=== PATIENT | male | born 1945 | race Caucasian/White ===

== ENCOUNTER → 2016-07-07 | Outpatient (CLI) | payer OTHER | END | disposition home or self-care (01) | LOC: PCVCIMAG 09:05 | PROVIDERS: ATTEND Internal Medicine Cardiovascular Disease | DX: I71.4 Abdominal aortic aneurysm, without rupture (principal); E78.00 Pure hypercholesterolemia, unspecified; I10 Essential (primary) hypertension; J44.9 Chronic obstructive pulmonary disease, unspecified; I25.10 Atherosclerotic heart disease of native coronary artery without angina pectoris; R53.83 Other fatigue; R68.89 Other general symptoms and signs | CPT/HCPCS: 80061; 93005; 93978; G0463 ==

== ENCOUNTER → 2016-08-15 | Outpatient (CLI) | payer OTHER | END | disposition home or self-care (01) | LOC: PCVCIMAG 10:46 | PROVIDERS: ATTEND Internal Medicine Cardiovascular Disease | DX: I71.4 Abdominal aortic aneurysm, without rupture (principal); I10 Essential (primary) hypertension; J44.9 Chronic obstructive pulmonary disease, unspecified | CPT/HCPCS: 93325; 93351 ==

== ENCOUNTER → 2016-08-24 | Outpatient (CLI) | payer OTHER ==
[~2016-08-24] MED LIST: DIAZEPAM 10 MG TABLET ONE; FENTANYL PF 100 MCG/2 ML VIAL. ONE; IOHEXOL 300 MG/ML 100ML VIAL. ONE; IOHEXOL 350 MG/ML 100ML VIAL. ONE; IOHEXOL 350 MG/ML 50 ML VIAL. ONE; IV NORMAL SALINE 1000ML BAG 1,000 ML ONE; LIDOCAINE 1% Multi-Dose 20 ML VIAL. ONE; MIDAZOLAM HCL 2 MG/2 ML VIAL. ONE
== END | disposition home or self-care (01) ==
LOC: PCVCINTER 09:08
PROVIDERS: ATTEND Internal Medicine Cardiovascular Disease
DX: I71.4 Abdominal aortic aneurysm, without rupture (principal); I70.1 Atherosclerosis of renal artery; I15.0 Renovascular hypertension; I70.0 Atherosclerosis of aorta; I10 Essential (primary) hypertension; J44.9 Chronic obstructive pulmonary disease, unspecified; I25.10 Atherosclerotic heart disease of native coronary artery without angina pectoris; I73.89 Other specified peripheral vascular diseases; I77.9 Disorder of arteries and arterioles, unspecified; E78.00 Pure hypercholesterolemia, unspecified; R53.83 Other fatigue; R68.89 Other general symptoms and signs
CPT/HCPCS: 36245; 36252; 75630; 75726; 76937; 93458; C1751; C1760; C1769; C1894; J2250; J3010; J7030; Q9967

== ENCOUNTER → 2016-11-02 | Outpatient (CLI) | payer OTHER | END | disposition home or self-care (01) | LOC: PCVCCLINIC 16:11 | PROVIDERS: ATTEND Internal Medicine Cardiovascular Disease | DX: I10 Essential (primary) hypertension (principal); I77.9 Disorder of arteries and arterioles, unspecified; I71.4 Abdominal aortic aneurysm, without rupture; E78.5 Hyperlipidemia, unspecified; R07.9 Chest pain, unspecified; Z87.891 Personal history of nicotine dependence; Z79.82 Long term (current) use of aspirin | CPT/HCPCS: 80061; 93005; G0463 ==

== ENCOUNTER → 2017-02-02 | Outpatient (CLI) | payer OTHER ==
[~2017-02-02] MED LIST changes: -DIAZEPAM 10 MG TABLET ONE; -FENTANYL PF 100 MCG/2 ML VIAL. ONE; -IOHEXOL 300 MG/ML 100ML VIAL. ONE; -IOHEXOL 350 MG/ML 100ML VIAL. ONE; -IOHEXOL 350 MG/ML 50 ML VIAL. ONE; -IV NORMAL SALINE 1000ML BAG 1,000 ML ONE; -LIDOCAINE 1% Multi-Dose 20 ML VIAL. ONE; -MIDAZOLAM HCL 2 MG/2 ML VIAL. ONE; +REGADENOSON 0.4 MG/5 ML DISP.SYRIN. IV ONE
--- NOTE | 2017-02-02 18:06 | PCVCIMAG ---
APPROVED REPORT Exam: Nuclear Stress Test Indication: Chest pain Patient Location: Out-Patient Stress Nurse: Ernestina Mercedes RN, Angeli Pro RN [place] Tech:Jo CORDELL ThurstonMT Ht: 6 ft 0 in Wt: 225 lbs BSA: 2.24 m2 HR: 57 bpm BP: 144/71 mmHg BMI: 30.5 Rhythm: Sinus Bradycardia Medical History Medical History: HTN, Hyperlipidemia, CVD, Former smoker Medications: Bystolic, ASA, Lipitor Allergies: No known drug allergies Previous Cardiac Procedures: Cardiac Cath - 70 to 75% prox circ OM Pretest Chest Pain Characteristics: No chest pain Exercise History: Physically active Physical Disabilities: Knees Meds Held (24 hrs): Otto NM EXAM: Myocardial Perfusion REST/STRESS Imaging Protocol: Rest Tc-99m/Stress Tc-99m 1 day Resting Data Rest SPECT myocardial perfusion imaging was performed in supine position 45 minutes following the intravenous injection of 10.6 mCi of Tc-99m Sestamibi. Time of rest injection: 914 Date: 02/02/2017 Pharmacologic Stress Pharmacologic stress test was performed by injecting Regadenoson 0.4 mg IV push followed by the intravenous injection of 32.7 mCi of Tc-99m Sestamibi. Time of stress injection: 1044 Date: 02/02/2017 Administration Route: IV Administration Site: Right Hand Gated Stress SPECT was performed 45 minutes after stress injection. The images were gated to evaluate regional wall motion and calculate left ventricular ejection fraction. Study Quality Study: Good Study Data Post stress, the left ventricular ejection was 57%.. SSS: 0 SRS: 0 SDS: 0 TID = 1.16. Perfusion No evidence of stress induced ischemia or prior myocardial infarction. Wall Motion Normal left ventricular size and function with no regional wall motion abnormalities. Nuclear Conclusion No evidence of stress induced ischemia or prior myocardial infarction. Normal left ventricular size and function with no regional wall motion abnormalities. Post stress, the left ventricular ejection was 57%.. No prior study available for comparison. Interpreted by: Luis Rollins MD Electronically Approved: 02/02/2017 17:14:59 Stress Test Details Stress Test: Pharmacologic stress testing performed using 0.4 mg of regadenoson per 5 mL given IV over 10 seconds. Reason for pharmacologic stress test: physical limitation. HR Resting HR: 57 bpmMax Heart Rate (APMHR): 147 bpm Max HR Achieved: 76 bpmTarget HR (85% APMHR): 124 bpm % of APMHR: 51 Recovery HR: 68 bpm BP Resting BP: 144/71 mmHg Max BP: 146/71 mmHg Recovery BP: 143/70 mmHg ECG Resting ECG: Sinus Bradycardia, , 1st degree AV block Stress ECG: Sinus Rhythm , 1st degree AV block, Sinus Rhythm, NSSTT changes Recovery ECG: Sinus Rhythm , 1st degree AV block Clinical Reason for Termination: Completed protocol Stress Symptoms: Dyspnea, Headache Symptoms resolved during recovery.
== END | disposition home or self-care (01) ==
LOC: PCVCIMAG 08:54
PROVIDERS: ATTEND Internal Medicine Cardiovascular Disease
DX: I44.0 Atrioventricular block, first degree (principal); R00.1 Bradycardia, unspecified; I10 Essential (primary) hypertension; E78.5 Hyperlipidemia, unspecified; I25.10 Atherosclerotic heart disease of native coronary artery without angina pectoris; I77.9 Disorder of arteries and arterioles, unspecified; I71.4 Abdominal aortic aneurysm, without rupture; Z87.891 Personal history of nicotine dependence
CPT/HCPCS: 78452; 93017; A9500; J2785

== ENCOUNTER → 2017-09-20 | Outpatient (CLI) | payer MEDICARE, OTHER | END | disposition home or self-care (01) | LOC: PCVCCLINIC 13:27 | DX: I25.10 Atherosclerotic heart disease of native coronary artery without angina pectoris (principal); E78.5 Hyperlipidemia, unspecified; I71.4 Abdominal aortic aneurysm, without rupture; I10 Essential (primary) hypertension; I77.9 Disorder of arteries and arterioles, unspecified; Z87.891 Personal history of nicotine dependence | CPT/HCPCS: 80061; 93005; G0463 ==

== ENCOUNTER → 2018-02-01 | Outpatient (CLI) | payer MEDICARE, OTHER | END | disposition home or self-care (01) | LOC: PCVCIMAG 14:44 | DX: I25.10 Atherosclerotic heart disease of native coronary artery without angina pectoris (principal); I71.4 Abdominal aortic aneurysm, without rupture; I10 Essential (primary) hypertension; E78.5 Hyperlipidemia, unspecified; I65.23 Occlusion and stenosis of bilateral carotid arteries | CPT/HCPCS: 93325; 93351; 93880 ==

== ENCOUNTER → 2018-10-17 | Outpatient (CLI) | payer MEDICARE, OTHER | END | disposition home or self-care (01) | LOC: PCVCCLINIC 13:40 | PROVIDERS: ATTEND Internal Medicine Cardiovascular Disease | DX: I25.10 Atherosclerotic heart disease of native coronary artery without angina pectoris (principal); I71.4 Abdominal aortic aneurysm, without rupture; I10 Essential (primary) hypertension; E78.00 Pure hypercholesterolemia, unspecified; J44.9 Chronic obstructive pulmonary disease, unspecified; Z79.899 Other long term (current) drug therapy; Z87.891 Personal history of nicotine dependence | CPT/HCPCS: 36415; 93005; G0463 ==

== ENCOUNTER → 2018-10-24 | Outpatient (CLI) | payer MEDICARE, OTHER ==
--- NOTE | 2018-10-24 12:34 | PCVCIMAG ---
APPROVED REPORT Study performed: 10/24/2018 08:31:50 Exam: Stress Echocardiogram Indication: chest heaviness, dyspnea on exertion Patient Location: Echo lab Stress Nurse: Ernestina Mercdees RN Room #: 2 Ht: 6 ft 0 in Medical History Medical History: CAD non obstructive, HTN, Hyperlipidemia Medications: Bystolic 10 mg- held one day Cardiac Risk Factors: HTN, Hyperlipidemia Pretest Chest Pain Characteristics: No chest pain Exercise History: Sedentary Procedure The patient underwent an Exercise Stress Test using the Chase Protocol. Blood pressure, heart rate, and EKG were monitored. An Echocardiogram was performed by psychiatric technician in four stages in quad fashion. At peak stress, four selected images were obtained and placed side by side with resting images for comparison. Stress Test Details Stress Test: Exercise stress testing was performed using a Chase protocol. HR Resting HR: 64 bpmMax Heart Rate (APMHR): 146 bpm Max HR Achieved: 122 bpmTarget HR (85% APMHR): 124 bpm % of APMHR: 83 Recovery HR: 75 bpm HR response to stress: Normal HR response to stress BP Resting BP: 120/70 mmHg Max BP: 166/80 mmHg Recovery BP: 132/64 mmHg BP response to stress: Normal blood pressure response to stress. ECG Resting ECG: Sinus Rhythm Stress ECG: Sinus Rhythm, NSSTT changes ST Change: Non-ischemic Arrhythmia: Occasional PVC and PVC couplets Recovery ECG: Sinus Rhythm, NSSTT changes Recovery ST Change: Non-ischemic Recovery Arrhythmia: Rare PVCs Clinical Reason for Termination: Maximal effort Stress Symptoms: fatigue,dyspnea Exercise duration: 6 min 26 sec Highest Stage Achieved: Stage 3: 3.4 mph at 14% grade. Exercise capacity: 8.3 METs Overall Exercise Capacity for Age: Average Scale: Sedentary Angina Score: None No complications. Stress ECG Conclusion The patient exercised according to the CHASE protocol for 6:26 mins; achieving a work level of 8.3 METS. The resting heart rate of 64 bpm yoana to a maximum heart rate of 122 bpm. This value represent 83% of the maximal, age-predicted heart rate. The resting blood pressure of 120/70mmHg, yoana to a maximum blood pressure of 166/80 mmHg. The exercise test was stopped due to dyspnea and fatigue. Pre-Stress Echo The resting Echocardiogram showed normal left ventricular contractility with an estimated Ejection Fraction of about 55-60%. Normal wall motion in all segments on baseline images. Post-Stress Echo The stress Echocardiogram showed normal left ventricular contractility with an estimated Ejection Fraction of about 65-70%. Normal augmentation of wall motion in all segments on post stress images. Clinical No clinical or ECG evidence for ischemia. Conclusion Clinical Response: Non-ischemic Exercise Capacity: Below Average Stress ECG Response: Non-ischemic Stress Echo Images: Non-ischemic No clinical, EKG or echocardiographic evidence for ischemia. No echocardiographic evidence for exercise induced ischemia. Normal stress echocardiogram with maximal exercise stress. Submaximal heart rate achieved with only one day without Bystolic <Conclusion> No clinical, EKG or echocardiographic evidence for ischemia. No echocardiographic evidence for exercise induced ischemia. Normal stress echocardiogram with maximal exercise stress. Submaximal heart rate achieved with only one day without Bystolic
--- NOTE | 2018-10-24 19:37 | PCVCIMAG ---
EXAM: AORTOILIAC DUPLEX INDICATION: Abdominal aortic aneurysm. FINDINGS: AORTA: Suprarenal aorta measures maximum diameter of 3.6 cm. There is a fusiform infrarenal aortic aneurysm. The infrarenal aorta measures maximum diameter of 3.4 x 4.6 cm. No aortic stenosis. RIGHT COMMON ILIAC ARTERY: Maximum diameter is 2.0 cm. No significant stenosis. RIGHT EXTERNAL ILIAC ARTERY: No significant stenosis. LEFT COMMON ILIAC ARTERY: Maximum diameter is 1.8 cm. No significant stenosis. LEFT EXTERNAL ILIAC ARTERY: No significant stenosis. IMPRESSION: 4.6 cm infrarenal abdominal aortic aneurysm compares to 4.4 cm on August 2017 study. 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 LOC:[id number]
== END | disposition home or self-care (01) ==
LOC: PCVCIMAG 07:55
PROVIDERS: ATTEND Internal Medicine Cardiovascular Disease
DX: I71.4 Abdominal aortic aneurysm, without rupture (principal); R06.09 Other forms of dyspnea; R07.89 Other chest pain; I10 Essential (primary) hypertension; I25.10 Atherosclerotic heart disease of native coronary artery without angina pectoris; E78.5 Hyperlipidemia, unspecified
CPT/HCPCS: 93325; 93351; 93978